=== PATIENT | male | born 1985 | race Hispanic/Latino ===

== ENCOUNTER 2024-09-19 10:45 | Emergency (ER) | payer BC ==
[~2024-09-19] VITALS: Ht 182.9 cm; Wt 140.6 kg
[2024-09-19] MEDS ORDERED: morPHINE 2 MG SYG IVP ONE (11:30)
[2024-09-19] MEDS: ondanSETRON 4MG INJ IVP ONE (11:36)
[2024-09-19] MEDS: ketOROlac 15MG/ML VIAL (15MG/ML) IV ONE (11:36)
[2024-09-19] MEDS: ORPHENADRINE 60MG/2ML IVP ONE (11:37)
[2024-09-19] MEDS: TRIAMCINOLONE ACETONIDE 40 MG/ML 1ML VIAL IM ONE (11:37)
--- NOTE | 2024-09-19 12:08 | ERN ---
General Chief Complaint: Lower Extremity Pain/Injury Stated Complaint: RT SCIATICA PAIN Time Seen by MD: 10:54 Time Seen by Midlevel: 10:54 Source: patient History of Present Illness Initial Comments Patient is a 39-year-old male presenting to the emergency department for evaluation of right-sided sciatica pain. The patient has an MRI scheduled to further evaluate his sciatica. He has a attempted Toradol in the past with little to no relief. Allergies: Coded Allergies: Penicillins (Unverified Allergy, Unknown, 09/19/24) codeine (Unverified Allergy, Unknown, 09/19/24) Past Medical History Past Medical History: Diabetes-Type II, Hypertension Past Surgical History: Other Surgical History Other: KNEE ROS Dictation CONSTITUTIONAL: Negative except for HPI HEAD/FACE: Negative except for HPI EENT: Negative except for HPI RESPIRATORY: Negative except for HPI GASTROINTESTINAL/ABDOMINAL: Negative except for HPI GENITOURINARY: Negative except for HPI MUSCULOSKELETAL: Negative except for HPI INTEGUMENTARY: Negative except for HPI NEUROLOGICAL/PSYCH: Negative except for HPI HEMATOLOGIC/LYMPHATIC: Negative except for HPI All Systems Negative, Except as noted above. 13 point review of systems assessed and all negative except for above. Physical Exam Physical Exam Dictation Vital Signs reviewed General Appearance: Alert, oriented x 3, no acute distress, well developed, nourished. Head and Face: non-traumatic. Eyes: PERRL, pink conjunctivas, eyelid no trauma, anterior chamber with arcus senilis. Ears: Pinnas intact and no signs of trauma or erythema ear canals clear and no discharge TM no erythema Nose: No discharge, no bleeding. Oropharynx: Mouth normal, tongue pink, pharynx clear,no erythema, tonsils no exudates, no abscesses noted, mucous membrane moist Neck: Supple, non-tender, no thyromegaly, no masses, no JVD, no bruits Breast:Deferred Chest:No tenderness, no crepitus, no paradoxical movement, no retractions Lungs:Clear, well-ventilated, symmetric, no rales, no wheezing, no rhonchi, no stridor, good breath sounds bilaterally Heart: Regular rate, regular rhythm, no murmur, no gallops Vascular: no peripheral edema, Abdomen: Soft, positive bowel sounds, nondistended, no guarding, nontender, no rebound, no masses no hepatomegaly, no splenomegaly, no Marks's sign, no hernias. Rectal: Deferred Genital: Deferred Neurological: Normal speech, motor function intact, sensory function intact Musculoskeletal: Neck nontender, full range of motion, back nontender, full range of motion, Extremities: nontender, full range of motion Skin: Color pink, dry, no turgor, no rash, no lacerations, no abrasions, no contusions. Lymphatic: Deferred MDM MDM: Patient is a 39-year-old male presenting to the emergency department for evaluation of right-sided sciatica pain. The patient has an MRI scheduled to further evaluate his sciatica. He has a attempted Toradol in the past with little to no relief. On physical examination the patient appears to be in mild distress secondary to pain. However, he is ambulatory without assistance and with a normal gait. He has full range motion of right lower extremity and left lower extremity. Sensation is intact. Lower extremities are neurovascularly i ntact. Patient denies any urinary/bowel incontinence. The patient has no red flag signs. No need for advanced imaging at this time. Patient was ordered morphine however the pharmacist cancel did stating there is a cross-reactivity with codeine. Patient states the only reaction he has to codeine is a rash. The patient was then given Toradol, Norflex, and Kenalog and was discharged home on supportive management. The patient's disease primary care doctor for further evaluation Differential diagnosis: Sciatica, chronic pain There are no social concerns with this patient. Prescription drug management Prescriptions will include: Toradol Medical management and examination interpretation discussions were had by me with other qualified healthcare professionals as indicated for the patient's care. ED Course Orders Procedure Category Date Status Time Morphine 2mg Syg PHA 09/19/24 Complete (Morphine 2mg Syg) 11:30 Ondansetron 4mg Inj PHA 09/19/24 Complete (Zofran 4mg Inj) 11:30 Orphenadrine Citrate PHA 09/19/24 Complete (Norflex) 11:30 Triamcinolone Acet PHA 09/19/24 Complete 40mg/Ml 1ml (Kenalog 11:30 Ketorolac PHA 09/19/24 Complete Tromethamine 15mg/Ml 11:30 Current Medications Medications (Trade) Dose Ordered Sig/Nakul Route PRN Reason Start Time Stop Time Status Last Admin Dose Admin Ketorolac Tromethamine (toRADol) 15 mg ONCE ONCE IV 09/19/24 11:30 09/19/24 11:31 DC 09/19/24 11:36 Morphine Sulfate (morPHINE 2MG SYG) 2 mg ONCE ONCE IVP 09/19/24 11:30 09/19/24 11:25 DC Ondansetron HCl (zoFRAN 4MG INJ) 4 mg ONCE ONCE IVP 09/19/24 11:30 09/19/24 11:31 DC 09/19/24 11:36 Orphenadrine Citrate (Norflex) 60 mg ONCE ONCE IVP 09/19/24 11:30 09/19/24 11:31 DC 09/19/24 11:37 Triamcinolone Acetonide (Kenalog 40) 40 mg ONCE ONCE IM 09/19/24 11:30 09/19/24 11:31 DC 09/19/24 11:37 Vital Signs Date Time Temp Pulse Resp B/P (MAP) Pulse Ox O2 Delivery O2 Flow Rate FiO2 09/19/24 11:14 98.4 93 18 154/87 96 Room Air* 0 21 09/19/24 10:46 98.4 93 18 154/89 96 Room Air 0 DX & DISP Disposition: Discharge Departure Impression: Primary Impression: Sciatic nerve pain Condition: Stable Additional Instructions: Please follow up with your primary care doctor for further evaluation. Referrals: CARLY CRESPO (PCP) Time of Disposition: 12:05 I have reviewed the case, and I agree with, Diagnosis and Plan I performed the substantive portion of the visit. I have reviewed and personally made and approve the management plan that is documented in the note by myself or the DYLAN. I acknowledge for responsibility for the patient's management plan. AURE LOBATO Sep 19, 2024 12:08
[2024-09-19 12:22] VITALS: BP 132/78; PULSE 88; RESP 18; TEMP 98.4; O2SAT 96
== END 2024-09-19 12:24 | disposition home or self-care (01) ==
LOC: EDH 10:45
DX: M54.31 Sciatica, right side (principal); E11.9 Type 2 diabetes mellitus without complications; I10 Essential (primary) hypertension; Z88.0 Allergy status to penicillin; Z88.5 Allergy status to narcotic agent
CPT/HCPCS: 99284; 96374; 96375; 96372; J1885; J2405; J3301; J2360